=== PATIENT | female | born 1930 | race Two or more races ===

== ENCOUNTER 2017-11-11 23:55 | Inpatient (IN) | payer MEDICARE, OTHER ==
[~2017-11-11] VITALS: Ht 157.5 cm; Wt 45.8 kg
--- NOTE | 2017-11-12 00:10 | NUR ---
ADMITTED 87 YEAR OLD FEMALE DIRECTLY FROM [facility] ER ON 515 FOR GD/DTO, AWAKE, ALERT ORIENTED X1. THOUGH CONFUSED BUT PLEASANT, INTACT SKIN, COLLECTED UA AND MRSA SWAP, SENT TO THE LAB, VERY FORGETFUL, COOPERATIVE WITH ADMISSION PROCESS, SON AND DOCTORS NOTIFIED, ORDERS OBTAINED, WILL CONTINUE TO MONITOR CLOSELY
[2017-11-12] MEDS ORDERED: MAG HYDROX/AL HYDROX/SIMETH 30 ML LIQUID UDC PO PRN (00:15)
[2017-11-12] MEDS ORDERED: LORAZEPAM 1 MG TABLET PO PRN (00:15)
[2017-11-12] MEDS ORDERED: MAGNESIUM HYDROXIDE 30 ML LIQUID UDC PO PRN (00:15)
[2017-11-12 00:41] VITALS: BP 140/73
[2017-11-12] MEDS ORDERED: TEMAZEPAM 7.5 MG CAPSULE ONE (00:52)
[2017-11-12] MEDS: TEMAZEPAM 7.5 MG CAPSULE PO PRN (00:53)
[2017-11-12] MEDS ORDERED: AMLO2.5T PO (00:57)
[2017-11-12] MEDS ORDERED: ATOR10TA PO (00:57)
[2017-11-12] MEDS ORDERED: TRAZ-147 PO (00:57)
[2017-11-12] MEDS ORDERED: DIVA250T4 PO (00:57)
[2017-11-12] MEDS ORDERED: RISP1TAB7 PO (00:57)
[2017-11-12] MEDS ORDERED: LOSA1TAB42 PO (00:57)
[2017-11-12] MEDS ORDERED: ASPI81TA31 PO (00:57)
[2017-11-12] MEDS ORDERED: ESCI10TA PO (00:57)
[2017-11-12] MEDS ORDERED: MELA3TAB PO (00:57)
[2017-11-12] MEDS ORDERED: RISP0.5T5 PO (00:57)
[2017-11-12] MEDS ORDERED: MULT-213 PO (00:57)
[2017-11-12] MEDS ORDERED: DONE10TA11 PO (00:57)
[2017-11-12 01:08] LABS: *BILIRUBIN,URIN NEGATIVE (NEGATIVE); *BLOOD, URINE NEGATIVE (NEGATIVE); *CLARITY,URINE CLEAR (CLEAR); *COLOR,URINE YELLOW (YELLOW); *KETONES,URINE NEGATIVE (NEGATIVE); *PROTEIN,URINE NEGATIVE (NEGATIVE); LEUKOCYTE ESTERASE ,URINE 1+ (NEGATIVE); NITRITE, URINE NEGATIVE (NEGATIVE); PH,URINE 7.5 (5.0-8.0); UGLUCOSE NEGATIVE (NEGATIVE)
[2017-11-12] MEDS ORDERED: CALC-34 PO (01:09)
[2017-11-12] MEDS ORDERED: OMEG-47 PO (01:09)
[2017-11-12 01:16] LABS: RBC,URINE NONE SEEN /HPF (0-3); WBC,URINE 0-3 /HPF (0-3)
[2017-11-12 01:17] LABS: BACTERIA,URINE NONE SEEN /HPF (NONE SEEN); SQUAMOUS EPITHELIAL CELL,UR FEW /HPF (NONE SEEN)
[2017-11-12] MEDS ORDERED: DIVA500T54 PO (03:47)
[2017-11-12] MEDS ORDERED: QUET25TA PO ×2 (03:47)
[2017-11-12 07:30] VITALS: BP 145/73
[2017-11-12] MEDS: LORAZEPAM 0.5 MG TABLET PO PRN (14:05)
[2017-11-12] MEDS ORDERED: Medication Not On Formulary EA (Losartan/Hydrochlorothiazide (Losartan-Hctz 100-12.5 Mg PO SCH (14:30)
[2017-11-12] MEDS ORDERED: ATORVASTATIN 10 MG TABLET PO SCH (14:30)
[2017-11-12 15:00] VITALS: BP 132/84
[2017-11-12] MEDS: ASPIRIN 81 MG TAB.CHEW PO SCH (15:07)
[2017-11-12] MEDS: AMLODIPINE 2.5 MG TABLET PO SCH (15:08)
[2017-11-12] MEDS: LOSARTAN POTASSIUM 50 MG TABLET PO SCH (15:08)
[2017-11-12] MEDS: HYDROCHLOROTHIAZIDE 12.5 MG CAPSULE PO SCH (15:08)
[2017-11-12] MEDS ORDERED: FISH OIL PO SCH (17:00)
[2017-11-12] MEDS ORDERED: EPA PO SCH (17:00)
[2017-11-12] MEDS ORDERED: [UNRECOGNIZED DRUG - OTHER] PO SCH (17:00)
[2017-11-12] MEDS ORDERED: OMEGA PO SCH (17:00)
[2017-11-12] MEDS ORDERED: DHA PO SCH (17:00)
[2017-11-12 19:18] LABS: CARBON DIOXIDE 30 mmol/L (21-32); CHLORIDE 104 mmol/L (98-107); CREATININE 0.8 mg/dL (0.6-1.3); POTASSIUM 3.8 mmol/L (3.5-5.1); UREA NITROGEN, BLOOD 16 mg/dL (7-18)
[2017-11-12 19:19] LABS: BASOPHILS % (AUTO) 0.2 % (0.0-2.0); EOSINOPHILS # (AUTO) 0.2 K/uL (0.0-0.7); HEMATOCRIT 34.9 % (31.2-41.9); HEMOGLOBIN 11.6 g/dL (10.9-14.3); LYMPHOCYTES # (AUTO) 1.2 K/uL (20.0-40.0); LYMPHOCYTES % (AUTO) 15.9 % (20.5-51.5); MEAN CORPUSCULAR HEMOGLOBIN 28.9 uug (24.7-32.8); MEAN CORPUSCULAR HGB CONC 33 g/dL (32.3-35.6); MEAN CORPUSCULAR VOLUME 87.2 fL (75.5-95.3); MONOCYTES # (AUTO) 0.4 K/uL (2.0-10.0); MONOCYTES % (AUTO) 5.9 % (0.0-11.0); NEUTROPHILS # (AUTO) 5.5 K/uL (1.8-8.9); PLATELET COUNT (AUTO) 161 K/uL (179-408); WHITE BLOOD COUNT (AUTO) 7.3 K/uL (3.8-11.8)
[2017-11-12 19:22] LABS: GLUCOSE 109 mg/dL (74-106)
[2017-11-12] MEDS: CEPHALEXIN MONOHYDRATE 500 MG CAPSULE PO SCH (20:23)
[2017-11-12] MEDS: ATORVASTATIN 10 MG TABLET PO SCH (20:23)
[2017-11-12 20:55] VITALS: BP 126/70
[2017-11-13] MEDS: TEMAZEPAM 7.5 MG CAPSULE PO PRN ×2 (00:02→22:43)
[2017-11-13 08:00] VITALS: BP 120/63
[2017-11-13] MEDS: CEPHALEXIN MONOHYDRATE 500 MG CAPSULE PO SCH ×2 (08:30→20:24)
[2017-11-13] MEDS: MULTIVIT, IRON, MIN NO. 8, FA TABLET PO SCH (08:30)
[2017-11-13] MEDS: OMEGA-3 FATTY ACIDS/FISH OIL CAPSULE PO SCH (08:30)
[2017-11-13] MEDS: ASPIRIN 81 MG TAB.CHEW PO SCH (08:31)
[2017-11-13] MEDS: CALCIUM CARB/VITAMIN D 500MG-200UNITS TABLET PO SCH (08:31)
[2017-11-13] MEDS: DIVALPROEX 250 MG TABLET.DR PO SCH ×2 (08:31→20:24)
[2017-11-13] MEDS: risperiDONE 0.25 MG TABLET PO SCH ×2 (08:31→20:24)
[2017-11-13] MEDS: AMLODIPINE 2.5 MG TABLET PO SCH (08:31)
[2017-11-13] MEDS: RIVASTIGMINE TARTRATE 1.5 MG CAPSULE PO SCH ×2 (08:31→20:24)
[2017-11-13] MEDS: HYDROCHLOROTHIAZIDE 12.5 MG CAPSULE PO SCH (08:32)
[2017-11-13] MEDS ORDERED: Medication Not On Formulary EA (Multivitamins W-Minerals (Multivitamin With Minerals) 1 PO SCH (09:00)
[2017-11-13] MEDS: LOSARTAN POTASSIUM 50 MG TABLET PO SCH (11:21)
--- NOTE | 2017-11-13 15:52 | NUR ---
Firearms Reporting: SALVADOR submitted Mental Report to DOJ on 11/13.
[2017-11-13 16:00] VITALS: BP 94/61
[2017-11-13] MEDS: LORAZEPAM 0.5 MG TABLET PO PRN (17:06)
[2017-11-13 20:23] VITALS: BP 103/62
[2017-11-13] MEDS: ATORVASTATIN 10 MG TABLET PO SCH (20:24)
[2017-11-13 22:47] VITALS: BP 124/70
--- NOTE | 2017-11-13 22:47 | NUR ---
PATIENT VISIBLE ON UNIT WONDERING IN AND OUT OF PATIENT'S ROOM REQUIRES FREQUENT PROMPTING AND REDIRECTION, CONFUSED, DISORGANIZED. PATIENT COMPLAINT WITH MEDICATION. BED IN LOWEST POSITION, BED LOCKED, AND BED ALARM ON WHILE IN BED.
[2017-11-14 07:30] VITALS: BP 137/57
[2017-11-14] MEDS: ASPIRIN 81 MG TAB.CHEW PO SCH (08:22)
[2017-11-14] MEDS: AMLODIPINE 2.5 MG TABLET PO SCH (08:22)
[2017-11-14] MEDS: CALCIUM CARB/VITAMIN D 500MG-200UNITS TABLET PO SCH (08:22)
[2017-11-14] MEDS: OMEGA-3 FATTY ACIDS/FISH OIL CAPSULE PO SCH (08:22)
[2017-11-14] MEDS: risperiDONE 0.25 MG TABLET PO SCH ×2 (08:22→20:29)
[2017-11-14] MEDS: RIVASTIGMINE TARTRATE 1.5 MG CAPSULE PO SCH ×2 (08:22→20:29)
[2017-11-14] MEDS: CEPHALEXIN MONOHYDRATE 500 MG CAPSULE PO SCH ×2 (08:22→20:29)
[2017-11-14] MEDS: MULTIVIT, IRON, MIN NO. 8, FA TABLET PO SCH (08:22)
[2017-11-14] MEDS: DIVALPROEX 250 MG TABLET.DR PO SCH ×2 (08:23→20:29)
[2017-11-14] MEDS: LOSARTAN POTASSIUM 50 MG TABLET PO SCH (08:23)
[2017-11-14] MEDS: HYDROCHLOROTHIAZIDE 12.5 MG CAPSULE PO SCH (08:24)
--- NOTE | 2017-11-14 11:27 | NUR ---
Initial Discharge Note: Patient currently resides in [facility] [[address] [place] [address]; phone: [phone]]. Pt's daughter Keily reports that she wants her mother to go back to this facility. SALVADOR spoke to Ma at [facility] who stated that the pt is able to come back to the facility after discharge. SALVADOR will follow up with MD, patient, patient's daughter Keily [[phone]] to discuss the most appropriate discharge plans. SW will form a safe and proper discharge.
[2017-11-14] MEDS: ACETAMINOPHEN 325 MG TABLET PO PRN (12:02)
[2017-11-14 15:00] VITALS: BP 109/68
[2017-11-14] MEDS: LORAZEPAM 0.5 MG TABLET PO PRN ×2 (16:26→21:34)
[2017-11-14 20:00] VITALS: BP 138/63
[2017-11-14] MEDS: ATORVASTATIN 10 MG TABLET PO SCH (20:29)
--- NOTE | 2017-11-14 21:37 | NUR ---
gps: patient is very agitated. pushing the sitter. ativan 0.5 mg po given.
--- NOTE | 2017-11-14 22:38 | NUR ---
GPS: PATIENT IS CALM NOW. PRN EFFECTIVE.
--- NOTE | 2017-11-14 23:15 | NUR ---
GPS:Patient vomited 30cc greenish color liquid x2. into the unit.received order zofran 4 mg po q 6hrs prn for n/v.
[2017-11-14] MEDS ORDERED: ONDANSETRON HCL 4 MG TABLET PO PRN (23:30)
[2017-11-15] MEDS ORDERED: ONDANSETRON HCL 4 MG TABLET ONE (01:05)
--- NOTE | 2017-11-15 06:18 | NUR ---
GPS: REMAIN CALM AND COOPERATIVE WITH MEDICATIONS AND CARE. CONTINUE ON 1:1 SITTER @ BEDSIDE FOR SAFETY. NO MORE N/V NOTED PRN ZOFRAN EFFECTIVE. SLEPT 6:75 HRS THROUGH THE NIGHT. CONTINUE MONITORING FOR SAFETY.
[2017-11-15 07:30] VITALS: BP 126/63
[2017-11-15 07:38] LABS: BASOPHILS % (AUTO) 0.1 % (0.0-2.0); EOSINOPHILS % (AUTO) 0.2 % (0.0-7.0); LYMPHOCYTES # (AUTO) 0.9 K/uL (20.0-40.0); LYMPHOCYTES % (AUTO) 15.1 % (20.5-51.5); MEAN CORPUSCULAR HEMOGLOBIN 28.8 uug (24.7-32.8); MEAN CORPUSCULAR HGB CONC 34 g/dL (32.3-35.6); MONOCYTES # (AUTO) 0.3 K/uL (2.0-10.0); MONOCYTES % (AUTO) 4.9 % (0.0-11.0); NEUTROPHILS # (AUTO) 4.7 K/uL (1.8-8.9); NEUTROPHILS % (AUTO) 79.7 % (38.5-71.5); PLATELET COUNT (AUTO) 132 K/uL (179-408); RED BLOOD CELL COUNT(AUTO) 3.55 MIL/uL (3.63-4.92); WHITE BLOOD COUNT (AUTO) 5.9 K/uL (3.8-11.8)
[2017-11-15 07:41] LABS: ALANINE AMINOTRANSFERASE 15 U/L (14-59); ALKALINE PHOSPHATASE 55 U/L (50-136); ASPARTATE AMINOTRANSFERASE 11 U/L (15-37); BILIRUBIN,TOTAL 0.3 mg/dL (0.2-1.0); CARBON DIOXIDE 33 mmol/L (21-32); CHLORIDE 103 mmol/L (98-107); GLUCOSE 105 mg/dL (74-106); MAGNESIUM 2.5 mg/dL (1.8-2.4); PHOSPHOROUS 5.9 mg/dL (2.5-4.9); POTASSIUM 3.9 mmol/L (3.5-5.1); TOTAL PROTEIN, SERUM 6.8 g/dL (6.4-8.2); UREA NITROGEN, BLOOD 20 mg/dL (7-18)
[2017-11-15 07:47] LABS: HEMATOCRIT 30.5 % (31.2-41.9); HEMOGLOBIN 10.2 g/dL (10.9-14.3)
[2017-11-15] MEDS: MULTIVIT, IRON, MIN NO. 8, FA TABLET PO SCH (09:22)
[2017-11-15] MEDS: CEPHALEXIN MONOHYDRATE 500 MG CAPSULE PO SCH ×2 (09:22→20:23)
[2017-11-15] MEDS: RIVASTIGMINE TARTRATE 1.5 MG CAPSULE PO SCH ×2 (09:22→20:23)
[2017-11-15] MEDS: OMEGA-3 FATTY ACIDS/FISH OIL CAPSULE PO SCH (09:22)
[2017-11-15] MEDS: LOSARTAN POTASSIUM 50 MG TABLET PO SCH (09:23)
[2017-11-15] MEDS: HYDROCHLOROTHIAZIDE 12.5 MG CAPSULE PO SCH (09:23)
[2017-11-15] MEDS: risperiDONE 0.5 MG TABLET PO SCH ×2 (09:23→20:24)
[2017-11-15] MEDS: ASPIRIN 81 MG TAB.CHEW PO SCH (09:23)
[2017-11-15] MEDS: AMLODIPINE 2.5 MG TABLET PO SCH (09:24)
[2017-11-15] MEDS: CALCIUM CARB/VITAMIN D 500MG-200UNITS TABLET PO SCH (09:24)
[2017-11-15] MEDS: DIVALPROEX 250 MG TABLET.DR PO SCH ×2 (09:24→20:23)
[2017-11-15] MEDS: LORAZEPAM 0.5 MG TABLET PO PRN (14:31)
[2017-11-15 15:00] VITALS: BP 106/61
[2017-11-15 20:22] VITALS: BP 102/53
[2017-11-15] MEDS: ATORVASTATIN 10 MG TABLET PO SCH (20:24)
--- NOTE | 2017-11-15 21:00 | NUR ---
RECEIVED PATIENT IN THE HALLWAY. SHE WAS NOTED A/O X 1 ABLE TO AMBULATE WITH STEADY GAIT. SHE WAS NOTED PACING THE HALLWAY AND WONDERING INTO OTHER PATIENT'S ROOMS. SHE CONTINUE ON 1:1 SUPERVISION FOR SAFETY. SHE WAS NOTED WITH FLAT AFFECT, DEPRESSED MOOD. CONFUSED, DISORGANIZED. UNABLE TO MAKE EYE CONTACT. NO AGGRESSIVE OR COMBATIVE BX NOTED AT THIS TIME. WILL CONTINUE TO MONITOR.
[2017-11-16 07:30] VITALS: BP 106/53
[2017-11-16] MEDS: RIVASTIGMINE TARTRATE 1.5 MG CAPSULE PO SCH ×2 (08:53→20:26)
[2017-11-16] MEDS: CEPHALEXIN MONOHYDRATE 500 MG CAPSULE PO SCH ×2 (08:53→20:26)
[2017-11-16] MEDS: CALCIUM CARB/VITAMIN D 500MG-200UNITS TABLET PO SCH (08:53)
[2017-11-16] MEDS: OMEGA-3 FATTY ACIDS/FISH OIL CAPSULE PO SCH (08:53)
[2017-11-16] MEDS: ASPIRIN 81 MG TAB.CHEW PO SCH (08:53)
[2017-11-16] MEDS: DIVALPROEX 250 MG TABLET.DR PO SCH ×2 (08:53→20:26)
[2017-11-16] MEDS: risperiDONE 0.5 MG TABLET PO SCH ×2 (08:54→20:26)
[2017-11-16] MEDS: MULTIVIT, IRON, MIN NO. 8, FA TABLET PO SCH (08:54)
[2017-11-16] MEDS: HYDROCHLOROTHIAZIDE 12.5 MG CAPSULE PO SCH (09:00)
[2017-11-16] MEDS: LOSARTAN POTASSIUM 50 MG TABLET PO SCH (09:00)
[2017-11-16] MEDS: AMLODIPINE 2.5 MG TABLET PO SCH (09:00)
[2017-11-16 15:28] VITALS: BP 109/59
[2017-11-16] MEDS: ACETAMINOPHEN 325 MG TABLET PO PRN (16:15)
[2017-11-16] MEDS: LORAZEPAM 0.5 MG TABLET PO PRN (16:16)
[2017-11-16] MEDS: ATORVASTATIN 10 MG TABLET PO SCH (20:26)
[2017-11-16 20:56] VITALS: BP 104/55
--- NOTE | 2017-11-16 22:00 | NUR ---
RECEIVED PATIENT AMBULATING IN THE MAIN HALLWAY, PACING AND WONDERING INTO OTHER PATIENT'S ROOM AND IN THE UNIT. SHE CONTINUE ON 1:1 SUPERVISION FOR SAFETY. PATIENT NOTED A/O X1 (TO NAME ONLY). SHE IS CONFUSED, DISORIENTED AND DISORGANIZED. INCONGRUENT MOOD, BLUNT AFFECT NOTED. NO AGGRESSIVE COMBATIVE BX NOTED AT THIS TIME. PATIENT IS COMPLAINT WITH MEDICATION REGIMENT AT THIS TIME. WILL CONTINUE TO MONITOR
[2017-11-16] MEDS: TEMAZEPAM 7.5 MG CAPSULE PO PRN (22:26)
--- NOTE | 2017-11-16 22:30 | NUR ---
PATIENT WAS NOTED PACING THE HALLWAY, RESTLESS. TEMAZEPAM 7.5 MG PO PRN WAS GIVEN FOR INSOMNIA. WILL CONTINUE TO MONITOR.
--- NOTE | 2017-11-16 23:40 | NUR ---
TEMAZEPAM 7.5MG PO PRN WAS EFFECTIVE. PT IS ASLEEP. SHE WILL CONTINUE ON 1:1 SUPERVISION.
--- NOTE | 2017-11-17 06:17 | NUR ---
PATIENT SLEPT FOR APPROX 7.0HRS THROUGH THE NIGHT.
[2017-11-17 07:30] VITALS: BP 100/55
[2017-11-17] MEDS: OMEGA-3 FATTY ACIDS/FISH OIL CAPSULE PO SCH (08:33)
[2017-11-17] MEDS: CALCIUM CARB/VITAMIN D 500MG-200UNITS TABLET PO SCH (08:33)
[2017-11-17] MEDS: risperiDONE 0.5 MG TABLET PO SCH ×2 (08:33→21:32)
[2017-11-17] MEDS: MULTIVIT, IRON, MIN NO. 8, FA TABLET PO SCH (08:33)
[2017-11-17] MEDS: RIVASTIGMINE TARTRATE 1.5 MG CAPSULE PO SCH ×2 (08:33→21:31)
[2017-11-17] MEDS: DIVALPROEX 250 MG TABLET.DR PO SCH ×2 (08:33→21:32)
[2017-11-17] MEDS: ASPIRIN 81 MG TAB.CHEW PO SCH (08:34)
[2017-11-17] MEDS: METOPROLOL TARTRATE 25 MG TABLET PO SCH ×3 (08:35→21:31)
[2017-11-17] MEDS: AMLODIPINE 2.5 MG TABLET PO SCH (08:36)
[2017-11-17 15:36] VITALS: BP 113/59
[2017-11-17 20:42] VITALS: BP 111/56
[2017-11-17] MEDS: ATORVASTATIN 10 MG TABLET PO SCH (21:32)
[2017-11-18 07:30] VITALS: BP 112/55
[2017-11-18] MEDS: RIVASTIGMINE TARTRATE 1.5 MG CAPSULE PO SCH ×2 (09:05→20:38)
[2017-11-18] MEDS: CALCIUM CARB/VITAMIN D 500MG-200UNITS TABLET PO SCH (09:05)
[2017-11-18] MEDS: risperiDONE 0.5 MG TABLET PO SCH (09:05)
[2017-11-18] MEDS: OMEGA-3 FATTY ACIDS/FISH OIL CAPSULE PO SCH (09:05)
[2017-11-18] MEDS: ASPIRIN 81 MG TAB.CHEW PO SCH (09:05)
[2017-11-18] MEDS: METOPROLOL TARTRATE 25 MG TABLET PO SCH ×2 (09:05→20:38)
[2017-11-18] MEDS: AMLODIPINE 2.5 MG TABLET PO SCH (09:06)
[2017-11-18] MEDS: MULTIVIT, IRON, MIN NO. 8, FA TABLET PO SCH (09:06)
[2017-11-18] MEDS: DIVALPROEX 250 MG TABLET.DR PO SCH ×2 (09:06→20:32)
[2017-11-18 15:34] VITALS: BP 106/54
[2017-11-18] MEDS: risperiDONE 0.25 MG TABLET PO SCH (20:37)
[2017-11-18] MEDS: ATORVASTATIN 10 MG TABLET PO SCH (20:38)
[2017-11-18 20:43] VITALS: BP 124/55
[2017-11-19 07:30] VITALS: BP 108/54
[2017-11-19] MEDS: AMLODIPINE 2.5 MG TABLET PO SCH (09:00)
[2017-11-19] MEDS: METOPROLOL TARTRATE 25 MG TABLET PO SCH (09:00)
[2017-11-19] MEDS: OMEGA-3 FATTY ACIDS/FISH OIL CAPSULE PO SCH (09:25)
[2017-11-19] MEDS: CALCIUM CARB/VITAMIN D 500MG-200UNITS TABLET PO SCH (09:25)
[2017-11-19] MEDS: risperiDONE 0.25 MG TABLET PO SCH ×2 (09:25→20:25)
[2017-11-19] MEDS: RIVASTIGMINE TARTRATE 1.5 MG CAPSULE PO SCH ×2 (09:25→20:25)
[2017-11-19] MEDS: LORAZEPAM 0.5 MG TABLET PO PRN (09:25)
[2017-11-19] MEDS: MULTIVIT, IRON, MIN NO. 8, FA TABLET PO SCH (09:25)
[2017-11-19] MEDS: DIVALPROEX 250 MG TABLET.DR PO SCH ×2 (09:26→20:25)
[2017-11-19] MEDS: ASPIRIN 81 MG TAB.CHEW PO SCH (09:26)
[2017-11-19 11:02] LABS: *BILIRUBIN,URIN NEGATIVE (NEGATIVE); *BLOOD, URINE Trace-intact (NEGATIVE); *CLARITY,URINE SLIGHTLY CLOUDY (CLEAR); *COLOR,URINE YELLOW (YELLOW); *KETONES,URINE NEGATIVE (NEGATIVE); *PROTEIN,URINE TRACE (NEGATIVE); LEUKOCYTE ESTERASE ,URINE 2+ (NEGATIVE); NITRITE, URINE NEGATIVE (NEGATIVE); UGLUCOSE NEGATIVE (NEGATIVE)
[2017-11-19 11:56] LABS: BACTERIA,URINE MODERATE /HPF (NONE SEEN); SQUAMOUS EPITHELIAL CELL,UR MODERATE /HPF (NONE SEEN)
[2017-11-19 16:50] VITALS: BP 108/61
[2017-11-19] MEDS ORDERED: CEPHALEXIN MONOHYDRATE 500 MG CAPSULE PO SCH (17:00)
[2017-11-19 20:00] VITALS: BP 126/50
[2017-11-19] MEDS: ATORVASTATIN 10 MG TABLET PO SCH (20:25)
[2017-11-19] MEDS: CEPHALEXIN MONOHYDRATE 500 MG CAPSULE PO SCH (21:56)
--- NOTE | 2017-11-19 22:00 | NUR ---
received to care, confused, but pleasant upon approach. wanders at times. 1:1 sitter remains at her side, at all times, for safety. as of 2199, she remains awake. appears slightly restless. will continue to monitor closely.
[2017-11-19] MEDS: TEMAZEPAM 7.5 MG CAPSULE PO PRN (22:13)
--- NOTE | 2017-11-19 22:13 | NUR ---
remains awake. PRN restoril was given, at this time. sitter remains at side.
--- NOTE | 2017-11-19 22:40 | NUR ---
appears to be asleep. no distress noted.
[2017-11-20] MEDS: CEPHALEXIN MONOHYDRATE 500 MG CAPSULE PO SCH ×2 (06:51→13:49)
[2017-11-20 08:00] VITALS: BP 116/54
--- NOTE | 2017-11-20 08:28 | NUR ---
DC Note: Patient will be discharged to [facility] [[address] [place] [id number]; [phone]] via private transportation at 3pm. Spoke with Linnea at the facility who states they are willing to provide transportation and are ready to accept the patient today. Spoke with patient's daughter, Keily ([phone]) who is aware and agreeable with discharge plans. Patient is aware and agreeable with discharge plans. Patient will follow-up at the facility with Dr. Land (Clinical Services Assistant) and Dr. Hinojosa (Psychiatrist).
[2017-11-20] MEDS: DIVALPROEX 250 MG TABLET.DR PO SCH (08:32)
[2017-11-20] MEDS: OMEGA-3 FATTY ACIDS/FISH OIL CAPSULE PO SCH (08:32)
[2017-11-20] MEDS: RIVASTIGMINE TARTRATE 1.5 MG CAPSULE PO SCH (08:32)
[2017-11-20] MEDS: MULTIVIT, IRON, MIN NO. 8, FA TABLET PO SCH (08:32)
[2017-11-20] MEDS: ASPIRIN 81 MG TAB.CHEW PO SCH (08:32)
[2017-11-20] MEDS: CALCIUM CARB/VITAMIN D 500MG-200UNITS TABLET PO SCH (08:32)
[2017-11-20] MEDS: risperiDONE 0.25 MG TABLET PO SCH (08:32)
[2017-11-20 08:38] LABS: BASOPHILS % (AUTO) 0.5 % (0.0-2.0); EOSINOPHILS # (AUTO) 0.2 K/uL (0.0-0.7); EOSINOPHILS % (AUTO) 3.6 % (0.0-7.0); HEMATOCRIT 30.7 % (31.2-41.9); HEMOGLOBIN 10.2 g/dL (10.9-14.3); LYMPHOCYTES # (AUTO) 1.1 K/uL (20.0-40.0); LYMPHOCYTES % (AUTO) 22.3 % (20.5-51.5); MEAN CORPUSCULAR HEMOGLOBIN 28.5 uug (24.7-32.8); MEAN CORPUSCULAR HGB CONC 33 g/dL (32.3-35.6); MEAN CORPUSCULAR VOLUME 86.1 fL (75.5-95.3); MONOCYTES # (AUTO) 0.6 K/uL (2.0-10.0); MONOCYTES % (AUTO) 11.6 % (0.0-11.0); PLATELET COUNT (AUTO) 109 K/uL (179-408); RED BLOOD CELL COUNT(AUTO) 3.57 MIL/uL (3.63-4.92); WHITE BLOOD COUNT (AUTO) 4.8 K/uL (3.8-11.8)
[2017-11-20 08:45] LABS: CARBON DIOXIDE 33 mmol/L (21-32); CHLORIDE 104 mmol/L (98-107); POTASSIUM 3.6 mmol/L (3.5-5.1)
[2017-11-20 08:46] LABS: ALANINE AMINOTRANSFERASE 14 U/L (14-59); ALKALINE PHOSPHATASE 47 U/L (50-136); ASPARTATE AMINOTRANSFERASE 14 U/L (15-37); BILIRUBIN,TOTAL 0.4 mg/dL (0.2-1.0); CREATININE 0.7 mg/dL (0.6-1.3); GLUCOSE 83 mg/dL (74-106); MAGNESIUM 2.6 mg/dL (1.8-2.4); PHOSPHOROUS 3.6 mg/dL (2.5-4.9); TOTAL PROTEIN, SERUM 6.5 g/dL (6.4-8.2); UREA NITROGEN, BLOOD 25 mg/dL (7-18)
[2017-11-20 09:03] LABS: THYROID STIMULATING HORMONE 3.889 mIU/mL (0.358-3.740)
[2017-11-20] MEDS: LORAZEPAM 0.5 MG TABLET PO PRN (13:52)
--- NOTE | 2017-11-20 16:00 | NUR ---
1130 Called to [facility] spoke to Ms. Gomez, RN threshing department supervisor regarding patient will de discharged this afternoon via facilty transportation. Matilda informd about patient Dx., medications to continue after hospital discharge. Patient alert and ox1, denies SI/HI . no delusion/ no hallucinations noted. Respiration even and unlabored, no s/s acute distress. 1530 Patient discharged, picked up by facility transportation.
== END 2017-11-20 15:30 | DRG 885 ==
LOC: GPS 23:55
PROVIDERS: ADMIT Psychiatry & Neurology Psychiatry; ATTEND Nurse Practitioner Acute Care
DX: F39 Unspecified mood [affective] disorder (principal); E44.0 Moderate protein-calorie malnutrition; D69.6 Thrombocytopenia, unspecified; E83.39 Other disorders of phosphorus metabolism; E83.41 Hypermagnesemia; F03.91 Unspecified dementia, unspecified severity, with behavioral disturbance; Z68.1 Body mass index [BMI] 19.9 or less, adult; N39.0 Urinary tract infection, site not specified; E86.0 Dehydration; I11.9 Hypertensive heart disease without heart failure; E78.5 Hyperlipidemia, unspecified; I70.0 Atherosclerosis of aorta; Z79.82 Long term (current) use of aspirin; Z79.899 Other long term (current) drug therapy; M19.90 Unspecified osteoarthritis, unspecified site; M81.0 Age-related osteoporosis without current pathological fracture; I25.2 Old myocardial infarction; R73.03 Prediabetes; D63.8 Anemia in other chronic diseases classified elsewhere; Z91.83 Wandering in diseases classified elsewhere
CPT/HCPCS: 36415; 71045; 83735; 84100; 84443; 85025; 87086; J3490; Q0162